=== PATIENT | male | born 2000 | race Caucasian/White ===

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

== ENCOUNTER 2022-02-16 13:41 | Outpatient (CLI) | payer OTHER, SELFPAY ==
--- NOTE | ~2022-02-16 | MR_ITS ---
EXAMINATION: MR knee RT wo con DATE: 02/16/2022 14:38 INDICATION: Right knee pain, injury in November 2021, instability and diffuse pain, failed PT. TECHNIQUE: Magnetic resonance imaging (MRI) of the right knee was performed without intravenous contr ast. Sequences included axial PD-weighted FS FSE, coronal PD-weighted FSE and PD-weighted FS FSE, sag ittal PD-weighted FSE, and sagittal T2-weighted FS FSE. COMPARISON: None. FINDINGS: Medial compartment: Vertically oriented tear of the posterior horn, medial meniscus. Mild diffuse thinning of cartilage. Lateral compartment: Bucket-handle tear of the body and posterior horn of the lateral meniscus with medial displacement of the fragment. Patellofemoral compartment: Patellar cartilage and retinacula are intact. Ligaments and tendons: ACL tear. PCL intact. Thickening of the MCL as can be seen with chronic partial tear. The LCL is inta ct. The flexor and extensor tendons are intact. Fluid: Large volume joint fluid. Osseous/other: Marrow contusions involving the lateral femoral condyle and lateral tibial plateau. Minimal marrow ed derek along the medial margin of the medial tibial plateau. IMPRESSION: 1. Vertical tear of the posterior horn, medial meniscus. 2. Bucket-handle tear of the body/posterior horn of the lateral meniscus, with medial fragment displa cement. 3. Complete ACL tear. 4. Large right knee joint effusion. Reviewed, dictated and finalized at location K. IMPRESSION: 1. Vertical tear of the posterior horn, medial meniscus. 2. Bucket-handle tear of the body/posterior horn of the lateral meniscus, with medial fragment displacement. 3. Complete ACL tear. 4. Large right knee joint effusion.
== END 2022-02-16 13:42 | disposition home or self-care (01) ==
PROVIDERS: PCP Pediatrics; Visit Provider Family Medicine
DX: S83.211A Bucket-handle tear of medial meniscus, current injury, right knee, initial encounter (principal); S83.512A Sprain of anterior cruciate ligament of left knee, initial encounter; M25.461 Effusion, right knee
CPT/HCPCS: 73721